=== PATIENT | female | born 1975 | race Caucasian/White ===

== ENCOUNTER 2017-09-28 21:20 | Emergency (ER) | payer SELFPAY ==
[~2017-09-28] VITALS: Ht 144.8 cm; Wt 69.9 kg
--- NOTE | 2017-09-28 21:20 | NUR ---
PT. PA TO ER BED 2
[2017-09-28 21:26] VITALS: BP 169/116
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
--- NOTE | 2017-09-28 21:34 | NUR ---
Dr. Pearson evaluating patient at bedside.
[2017-09-28] MEDS ORDERED: oxyCODONE/APAP 5/325 MG 1 TAB TAB PO ONE (21:40)
[2017-09-28] MEDS ORDERED: KETOROLAC 60 MG/2 ML VIAL IM ONE (21:40)
--- NOTE | 2017-09-28 21:53 | NUR ---
PT. TAKEN TO CT
--- NOTE | 2017-09-28 22:05 | NUR ---
PT. BACK FROM CT
--- NOTE | 2017-09-28 23:29 | NUR ---
Patient appears to be resting comfortably in bed. Vital Signs within normal limits. Respirations even and unlabored.
[2017-09-29 00:04] VITALS: BP 136/86
--- NOTE | 2017-09-29 00:04 | NUR ---
Patient discharged with v/s stable. Written and verbal after care instructions given and explained. Patient alert, oriented and verbalized understanding of instructions. Ambulatory with steady gait. All questions addressed prior to discharge. ID band removed. Patient advised to follow up with PMD. Rx of NORCO 5/325 MG, MOTRIN 800 MG given. Patient educated on indication of medication including possible reaction and side effects. Opportunity to ask questions provided and answered.
== END 2017-09-29 00:04 | disposition home or self-care (01) ==
LOC: MED 21:20
DX: S13.4XXA Sprain of ligaments of cervical spine, initial encounter (principal); S33.5XXA Sprain of ligaments of lumbar spine, initial encounter; S09.90XA Unspecified injury of head, initial encounter; Y04.2XXA Assault by strike against or bumped into by another person, initial encounter; Y93.89 Activity, other specified; Y92.098 Other place in other non-institutional residence as the place of occurrence of the external cause; Y99.8 Other external cause status
CPT/HCPCS: 70450; 72050; 72110; 96372; 99284; J1885